=== PATIENT | female | born 1995 | race Caucasian/White ===

== ENCOUNTER 2017-10-11 23:22 | Emergency (ER) | payer SELFPAY ==
[~2017-10-11] VITALS: Ht 167.6 cm; Wt 79.4 kg
[2017-10-11 23:25] VITALS: TEMP 98.3
[2017-10-12 00:05] LABS: COLLECTION METHOD CLEAN CATCH
[2017-10-12 00:10] LABS: BASO # 0.1 (0.0-0.2); EOS # 0.8 (0.0-0.7); EOS % 8.4 % (0-4.0); GRAN # 5.4 (1.4-6.5); GRAN % 58.1 % (42.2-75.2); HEMATOCRIT 39.4 % (35.0-45.0); HEMOGLOBIN 12.5 g/dl (12.0-15.0); LYMPH # 2.2 (1.2-3.4); LYMPH % 23.7 % (20.0-51.0); MEAN CELL VOLUME 89 fl (80.0-95.0); MEAN CORPUSCULAR HEMOGLOBIN 28 pg (26.0-32.0); MEAN CORPUSCULAR HGB CONC 32 g/dl (33.0-37.0); MEAN PLATELET VOLUME 8.6 fl (7.4-10.4); MONO # 0.8 (0.1-0.6); MONO % 8.5 % (1.7-9.3); PLATELET COUNT 318 K/mm3 (130-400); RED BLOOD COUNT 4.43 M/mm3 (4.10-5.30); REDCELL DISTRIBUTION WIDTH-CV 12.2 % (11.5-14.5)
[2017-10-12 00:15] LABS: MUCOUS Present /lpf; PH 6 (5-8); URINE APPEARANCE Clear; URINE BACTERIA None Seen /hpf; URINE BILIRUBIN Negative (NEGATIVE); URINE BLOOD Negative (NEGATIVE); URINE COLOR Yellow; URINE GLUCOSE Negative (NEGATIVE); URINE KETONE Negative (NEGATIVE); URINE LEUKOCYTE ESTERASE Trace (NEGATIVE); URINE NITRATE Negative (NEGATIVE); URINE PROTEIN(semi-quant) Negative (NEGATIVE); URINE UROBILINOGEN Negative (NEGATIVE)
[2017-10-12 00:24] LABS: ALBUMIN 4.3 gm/dL (3.5-5.0); BILIRUBIN,TOTAL 0.3 mg/dL (0.0-1.0); C-REACTIVE PROTEIN 1.8 mg/dL (0.0-0.9); CREATININE, serum 0.63 mg/dL (0.52-1.25); POTASSIUM 3.7 mmol/L (3.4-5.0); TOTAL PROTEIN 7.8 gm/dL (6.4-8.2)
[2017-10-12] MEDS ORDERED: CEFTIN500 MG PO (00:37)
[2017-10-12 01:16] VITALS: BP 110/69; PULSE 72
== END 2017-10-12 01:20 | disposition home or self-care (01) ==
LOC: COL.ER 23:22
PROVIDERS: Physician Assistant
DX: N39.0 Urinary tract infection, site not specified (principal); F17.210 Nicotine dependence, cigarettes, uncomplicated
CPT/HCPCS: J1885; J2405; J7030

== ENCOUNTER → 2018-01-22 | Outpatient (CLI) | payer SELFPAY ==
[~2018-01-22] MED LIST: CEFTIN500 MG PO
== END ==
LOC: COL.LAB 17:13
DX: J02.9 Acute pharyngitis, unspecified (principal)

== ENCOUNTER 2019-09-14 15:04 | Emergency (ER) | payer MEDICAID ==
[~2019-09-14] VITALS: Ht 167.6 cm; Wt 77.6 kg
[2019-09-14] MEDS ORDERED: PRENATAL TABLET PO (20:15)
[2019-09-14 20:25] LABS: COLLECTION METHOD CLEAN CATCH
[2019-09-14 20:43] LABS: BUDDING YEAST Present /hpf; MUCOUS Present /lpf; PH 7 (5-8); SQUAMOUS EPITHELIAL 0-2 /hpf; URINE APPEARANCE Turbid; URINE BACTERIA Rare /hpf; URINE BILIRUBIN Negative (NEGATIVE); URINE BLOOD Negative (NEGATIVE); URINE COLOR Yellow; URINE GLUCOSE Negative (NEGATIVE); URINE KETONE Negative (NEGATIVE); URINE LEUKOCYTE ESTERASE Negative (NEGATIVE); URINE NITRATE Negative (NEGATIVE); URINE PROTEIN(semi-quant) Negative (NEGATIVE); URINE UROBILINOGEN Negative (NEGATIVE)
[2019-09-14 22:00] VITALS: BP 116/70; PULSE 82; TEMP 98.8
== END 2019-09-14 22:05 | disposition home or self-care (01) ==
LOC: COL.ER 15:04
PROVIDERS: Physician Assistant
DX: O26.891 Other specified pregnancy related conditions, first trimester (principal); R42 Dizziness and giddiness; R51 Headache; Z3A.11 11 weeks gestation of pregnancy
CPT/HCPCS: J1200; J2765

== ENCOUNTER 2021-07-09 08:53 | Emergency (ER) | payer BC ==
[~2021-07-09] VITALS: Ht 167.6 cm; Wt 87.7 kg
[~2021-07-09 08:53] MED LIST changes: +PRENATAL TABLET PO
[2021-07-09 11:16] LABS: COLLECTION METHOD CLEAN CATCH
[2021-07-09 11:25] LABS: MUCOUS Present (NOT PRESENT); PH 6 (5-8); SQUAMOUS EPITHELIAL 0-2 /hpf (0-10); URINE APPEARANCE Hazy (CLEAR/HAZY); URINE BACTERIA None Seen (NONE SEEN); URINE BILIRUBIN Negative (NEGATIVE); URINE BLOOD 1+ (NEGATIVE); URINE COLOR Yellow (YELLOW); URINE GLUCOSE Negative (NEGATIVE); URINE KETONE Negative (NEGATIVE); URINE LEUKOCYTE ESTERASE Negative (NEGATIVE); URINE NITRATE Negative (NEGATIVE); URINE PROTEIN(semi-quant) Negative (NEGATIVE)
[2021-07-09] MEDS ORDERED: TAMIFLU 75MG75 MG PO (11:34)
[2021-07-09] MEDS ORDERED: TAMIFLU30 MG PO (11:34)
[2021-07-09 11:48] VITALS: BP 102/72; PULSE 108; TEMP 98.9
== END 2021-07-09 11:48 | disposition home or self-care (01) ==
LOC: COL.ER 08:53
PROVIDERS: Emergency Medicine
DX: O98.511 Other viral diseases complicating pregnancy, first trimester (principal); J10.1 Influenza due to other identified influenza virus with other respiratory manifestations; Z20.822 Contact with and (suspected) exposure to COVID-19; Z3A.09 9 weeks gestation of pregnancy

== ENCOUNTER 2022-02-19 21:51 | Inpatient (IN) | payer BC, OTHER ==
[~2022-02-19] VITALS: Ht 167.6 cm; Wt 106.8 kg
[~2022-02-19 21:51] MED LIST changes: +TAMIFLU 75MG75 MG PO; +TAMIFLU30 MG PO
[2022-02-19 22:00] VITALS: TEMP 98.1
[2022-02-19 22:30] VITALS: BP 127/84; PULSE 97; TEMP 98.2
[2022-02-19 22:49] LABS: BASO # 0.1 K/mm3 (0.0-0.2); BASO % 0.5 % (0.0-2.0); EOS # 0.2 K/mm3 (0.0-0.7); EOS % 1.6 % (0.0-4.0); GRAN # 8.2 K/mm3 (1.4-6.5); GRAN % 75.9 % (42.2-75.2); HEMOGLOBIN 10.8 g/dl (12.5-16.0); LYMPH # 1.6 K/mm3 (1.2-3.4); LYMPH % 14.4 % (20.0-51.0); MEAN CELL VOLUME 80 fl (80.0-100.0); MEAN CORPUSCULAR HEMOGLOBIN 26 pg (27-31); MEAN CORPUSCULAR HGB CONC 33 g/dl (33.0-37.0); MEAN PLATELET VOLUME 9.1 fl (7.4-10.4); MONO # 0.8 K/mm3 (0.1-0.6); MONO % 7.1 % (1.7-9.3); PLATELET COUNT 264 K/mm3 (130-400); RED BLOOD COUNT 4.14 M/mm3 (4.10-5.30); REDCELL DISTRIBUTION WIDTH-CV 14.4 % (11.5-14.5)
[2022-02-19 23:00] VITALS: BP 120/79; PULSE 106
[2022-02-19 23:06] LABS: HEMATOCRIT 33.2 % (37.0-47.0)
[2022-02-20] VITALS (48 sets, daily range): BP systolic 87–131; BP diastolic 51–94; PULSE 68–105; TEMP 97.6–98.6
--- NOTE | 2022-02-20 07:17 | NUR ---
0635 - SVE DONE 0640 - RN PHONES DR QUILES, UPDATE GIVEN ON PT, NOTIFIED ONLY ONE DOSE OF CYTOTEC AT 2300 LAST PM, CURRENT CERVICAL EXAM OF , UNCHANGED FROM ADMIT EXAM, DR QUIELS ORDER TO PLACE ANOTHER CYTOTEC DOSE NOW 0655 - CYTOTEC 25MCG PLACED TO POSTERIOR FORNIX OF VAGINA
--- NOTE | 2022-02-20 09:41 | NUR ---
PT RESTS QUIETLY ON SIDE, FEELING A LITTLE CRAMPY. DENIES ANY NEEDS AT THIS TIME
--- NOTE | 2022-02-20 11:30 | NUR ---
DR QUILES CALLED AFTER SVE, CERVIX SLIGHTLY THINNER. ORDER TO START PITOCIN
--- NOTE | 2022-02-20 13:49 | NUR ---
1460 - DR ROLES TO ROOM, VISITS WITH PT AND REVIEWS TRACING, CONTINUE WITH PLAN OF CARE
--- NOTE | 2022-02-20 15:56 | NUR ---
ROLES IN DEPARTMENT, UPDATE GIVEN, SHE PLANS TO CHECK HER BEFORE SHE LEAVES UNIT
--- NOTE | 2022-02-20 17:45 | NUR ---
BEGINNING TO GET MORE UNCOMORTABLE
[2022-02-21] VITALS (40 sets, daily range): BP systolic 94–153; BP diastolic 57–90; PULSE 68–136; TEMP 97.8–98.8
--- NOTE | 2022-02-21 00:20 | NUR ---
epidural cath was placed and withthe test dose pt's hr went from 100 to 140's. a send test dose was given with the same effects. the cath was removed and a second epidural was placed.
--- NOTE | 2022-02-21 05:15 | NUR ---
IUPC PLACED BY DR QUILES. BASELINE IS 40, ZEROED, RESET AND THE CORD CHANGED OUT.
--- NOTE | 2022-02-21 12:06 | NUR ---
0722 MD AT BEDSIDE FOR SVE. PATIENT STILL THE SAME AT /. MD AND PATIENT SPOKE ABOUT POTENTIAL C- SECTION. PATIENT ASKED IF WE CAN WAIT ONE MORE HOUR. 0727 PATIENT PLACED ON HER LEFT SIDE WITH PEANUT BALL. NO NEEDS AT THIS TIME. 0735 PATIENT PLACED BACK ON RIGHT SIDE WITH PEANUT BALL DUE TO SOME LATE VARIABLES. 0830 MD BACK AT BEDSIDE FOR SVE AND UPDATED PLAN OF CARE. 0833 SVE SAME AT . 0835 C- SECTION CALLED. OUTFIT FOR DAD GIVEN, PATIENT CLIPPED AND WIPED. PITOCIN TURNED OFF. 0847 IUPC TAKEN OFF. 0853 PATIENT ROLLED TO OR VIA BED. MDS, NEWS AGENT, TRAFFIC CLERK, CHARGE NURSE [facility] NURSES AT IN OR AT BEDSIDE. 0905 PROCEDURE BEGINS. 0940 PROCEDURE ENDS 0951 ENTERED INTO PACU. 1021 PATIENT TRANSFERRED FROM PACU TO 210, ALERT, ORIENTED BUT STATES SHE IS "STILL SLEEPY". VTALS STABLE.
[2022-02-22 04:00] VITALS: BP 107/69; PULSE 76; TEMP 98.3
[2022-02-22 08:30] VITALS: BP 112/76; PULSE 67; TEMP 97.3
[2022-02-22] MEDS ORDERED: IBU800 M1 PO (10:37)
[2022-02-22] MEDS ORDERED: ROXICODONE 55 MG/TAB PO (10:38)
[2022-02-22 16:30] VITALS: BP 112/58; PULSE 87; TEMP 98.2
[2022-02-22 21:27] VITALS: BP 103/70; PULSE 78; TEMP 98.1
[2022-02-23 07:17] VITALS: BP 94/56; PULSE 96; TEMP 97.6
== END 2022-02-23 14:15 | disposition home or self-care (01) | DRG 788 ==
LOC: OB 21:51 → LDR 21:51 → OB 02-20 12:52
PROVIDERS: ADMIT Obstetrics & Gynecology
PROC: 10D00Z1 Extraction of Products of Conception, Low, Open Approach (ICD-10-PCS; principal; 2022-02-21)
PROC: 10H07YZ Insertion of Other Device into Products of Conception, Via Natural or Artificial Opening (ICD-10-PCS; 2022-02-21)
DX: O48.0 Post-term pregnancy (principal); Z3A.41 41 weeks gestation of pregnancy; Z37.0 Single live birth; O99.214 Obesity complicating childbirth; O99.344 Other mental disorders complicating childbirth; F41.9 Anxiety disorder, unspecified
CPT/HCPCS: J0595; J0690; J1100; J2250; J2405; J2590; J7120